=== PATIENT | male | born 1950 | race American Indian/Alaskan Native ===

== ENCOUNTER 2023-04-14 08:12 | Emergency (ER) | payer MEDICARE, MEDICAID ==
[~2023-04-14] VITALS: Ht 167.6 cm; Wt 180.0 kg
[~2023-04-14 08:12] MED LIST: ALBU18HF2 INH; ASPI-1053 PO; BLOO-292 PO; CARB100T3 PO; CHOL400T57 PO; IRON18TA PO; LISI5TAB22 PO; NITR0.4T48 SL; ZIPR80CA2 PO
[2023-04-14 08:21] VITALS: TEMP 98.1
[2023-04-14 08:38] LABS: BASOPHILS % (AUTO) 0.7 % (0-1); EOSINOPHILS % (AUTO) 0.7 % (0-6); HEMATOCRIT 41.5 % (42.0-52.0); HEMOGLOBIN 14.5 g/dl (14.0-17.9); LYMPHOCYTES # (AUTO) 1.3 X10'3 (1.1-4.8); LYMPHOCYTES % (AUTO) 22.1 % (21-51); MEAN CORPUSCULAR HEMOGLOBIN 33.9 PG (27.0-31.0); MEAN CORPUSCULAR HGB CONC 34.8 g/dL (33.0-36.5); MEAN CORPUSCULAR VOLUME 97.5 FL (78-98); MEAN PLATELET VOLUME 7.1 FL (7.4-10.4); MONOCYTES # (AUTO) 0.5 X10'3 (0-0.9); MONOCYTES % (AUTO) 9.1 % (2-12); NEUTROPHILS % (AUTO) 67.4 % (42-75); PLATELET COUNT 261 X10'3 (140-440); RED BLOOD COUNT 4.26 X10'6 (4.70-6.10); RED CELL DISTRIBUTION WIDTH 13.3 % (11.5-14.5); WHITE BLOOD COUNT 5.9 X10'3 (4.5-11.0)
[2023-04-14 08:53] LABS: ALANINE AMINOTRANSFERASE 23 U/L (12-78); ALBUMIN 3.7 G/DL (3.4-5.0); ALBUMIN/GLOBULIN RATIO 1.2 (1.1-1.5); ALKALINE PHOSPHATASE 54 IU/L (46-116); ANION GAP 9 (8-16); ASPARTATE AMINO TRANSFERASE 10 U/L (10-37); BILIRUBIN,TOTAL 0.4 MG/DL (0.1-1.0); BLOOD UREA NITROGEN 10 MG/DL (7-18); BUN/CREATININE RATIO 11.9 (10.0-20.0); CALCIUM 8.6 MG/DL (8.5-10.1); CHLORIDE 101 MMOL/L (99-107); CREATININE 0.84 MG/DL (0.60-1.10); GLUCOSE 97 MG/DL (70-104); SODIUM 132 MMOL/L (135-145); TOTAL CARBON DIOXIDE 22.5 MMOL/L (24-32); TOTAL PROTEIN 6.7 G/DL (6.4-8.2); eCRCL 72 ML/MIN; eGFR 90 ML/MIN
[2023-04-14 08:54] LABS: ALBUMIN 3.8 G/DL (3.4-5.0); ANION GAP 9 (8-16); BLOOD UREA NITROGEN 10 MG/DL (7-18); BUN/CREATININE RATIO 11.6 (10.0-20.0); CALCIUM 8.8 MG/DL (8.5-10.1); CHLORIDE 101 MMOL/L (99-107); CREATININE 0.86 MG/DL (0.60-1.10); GLUCOSE 98 MG/DL (70-104); SODIUM 132 MMOL/L (135-145); TOTAL CARBON DIOXIDE 22.2 MMOL/L (24-32); eCRCL 70 ML/MIN; eGFR 87 ML/MIN
[2023-04-14 09:00] LABS: PRO BRAIN NATRIURETIC PEPTIDE 176 PG/ML (0-125)
[2023-04-14] MEDS ORDERED: HYDROcodone/acetaminophen 5mg/325mg tablet PO ONE (13:00)
[2023-04-14 14:31] VITALS: BP 141/102; PULSE 76; RESP 16; O2SAT 96
== END 2023-04-14 14:34 | disposition home or self-care (01) ==
LOC: ER 08:12
DX: R07.89 Other chest pain (principal); I10 Essential (primary) hypertension; F12.90 Cannabis use, unspecified, uncomplicated; Z79.82 Long term (current) use of aspirin; Z79.899 Other long term (current) drug therapy
CPT/HCPCS: 36415; 71045; 80048; 80053; 83880; 84484; 85025; 93005; 99285

== ENCOUNTER 2023-10-02 08:28 | Emergency (ER) | payer MEDICARE, MEDICAID ==
[~2023-10-02] VITALS: Ht 165.1 cm; Wt 88.4 kg
[2023-10-02 08:49] VITALS: PULSE 67
[2023-10-02] MEDS: CefTRIAXone 1000mg IM Kit (w/lidocaine diluent) IM ONE (10:05)
[2023-10-02] MEDS ORDERED: SULF1TAB49 PO (10:58)
[2023-10-02] MEDS ORDERED: AMOX875T2 PO (10:58)
[2023-10-02 11:23] VITALS: BP 110/70; RESP 14; TEMP 97.9; O2SAT 98
== END 2023-10-02 11:24 | disposition home or self-care (01) ==
LOC: ER 08:29
DX: S60.512A Abrasion of left hand, initial encounter (principal); S60.511A Abrasion of right hand, initial encounter; S80.212A Abrasion, left knee, initial encounter; S80.211A Abrasion, right knee, initial encounter; I10 Essential (primary) hypertension; F41.9 Anxiety disorder, unspecified; Z79.82 Long term (current) use of aspirin; Z79.899 Other long term (current) drug therapy; F12.90 Cannabis use, unspecified, uncomplicated; W18.39XA Other fall on same level, initial encounter; Y93.89 Activity, other specified; Y92.89 Other specified places as the place of occurrence of the external cause; Y99.8 Other external cause status
CPT/HCPCS: 71100; 73130; 73560; 96372; 99284; J0696